=== PATIENT | female | born 1985 | race Caucasian/White ===

== ENCOUNTER 2016-03-15 16:10 | Emergency (ER) | payer OTHER ==
[~2016-03-15] VITALS: Ht 167.6 cm; Wt 56.2 kg
[~2016-03-15 16:10] MED LIST: MULT-506 PO
[2016-03-15 16:16] VITALS: TEMP 36.5; Ht 167.6 cm; Wt 56.2 kg
[2016-03-15] MEDS ORDERED: BCPILLS PO (16:31)
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
[2016-03-15] MEDS ORDERED: HYDR-5688 PO (18:11)
[2016-03-15] MEDS ORDERED: NORCO 5/325MG HOME PACK PO ONE (18:15)
[2016-03-15 18:26] VITALS: BP 119/74; PULSE 76; O2SAT 96
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
== END 2016-03-15 18:27 | disposition home or self-care (01) ==
LOC: C.EDB 16:12 → C.EDD 18:27
DX: S00.83XA Contusion of other part of head, initial encounter (principal); V18.0XXA Pedal cycle driver injured in noncollision transport accident in nontraffic accident, initial encounter; Z87.891 Personal history of nicotine dependence; Z79.3 Long term (current) use of hormonal contraceptives

== ENCOUNTER → 2016-06-11 | Outpatient (CLI) | payer OTHER ==
[~2016-06-11] MED LIST changes: +BCPILLS PO; +HYDR-5688 PO; -MULT-506 PO
== END | disposition home or self-care (01) ==
LOC: C.PAPS 10:12
PROVIDERS: ATTEND Obstetrics & Gynecology
DX: Z12.4 Encounter for screening for malignant neoplasm of cervix (principal)